=== PATIENT | female | born 1980 | race Asian ===

== ENCOUNTER 2016-04-26 16:01 | Emergency (ER) | payer OTHER ==
[~2016-04-26] VITALS: Ht 154.9 cm; Wt 80.7 kg
[2016-04-26 17:05] VITALS: BP 110/78; TEMP 98.5
== END 2016-04-26 17:06 | disposition home or self-care (01) ==
LOC: ED 16:01
PROC: 09C1XZZ Extirpation of Matter from Left External Ear, External Approach (ICD-10-PCS; principal; 2016-04-26)
DX: T16.2XXA Foreign body in left ear, initial encounter (principal)
CPT/HCPCS: 99283

== ENCOUNTER 2018-11-16 10:05 | Emergency (ER) | payer OTHER ==
[~2018-11-16] VITALS: Ht 165.1 cm; Wt 96.6 kg
[2018-11-16 10:09] VITALS: BP 124/86; TEMP 97.7
[2018-11-16 10:31] LABS: PLATELET COUNT 375 K/uL (152-353)
[2018-11-16 10:36] LABS: POTASSIUM 3.5 mmol/L (3.6-5.2); SODIUM 138 mmol/L (136-145)
== END 2018-11-16 11:50 | disposition home or self-care (01) ==
LOC: ED 10:05
PROVIDERS: Emergency Medicine
DX: J40 Bronchitis, not specified as acute or chronic (principal); J06.9 Acute upper respiratory infection, unspecified
CPT/HCPCS: 80053; 82550; 82553; 84484; 85027; 87502; 87651; 94664; 96372; 99283; J2930

== ENCOUNTER 2019-03-30 08:08 | Emergency (ER) | payer OTHER ==
[~2019-03-30] VITALS: Ht 162.6 cm; Wt 98.9 kg
[2019-03-30 08:14] VITALS: TEMP 97.2
[2019-03-30 08:54] LABS: PLATELET COUNT 365 K/uL (152-353)
[2019-03-30 09:27] VITALS: BP 128/91
== END 2019-03-30 09:46 | disposition home or self-care (01) ==
LOC: ED 08:08
PROVIDERS: Hospitalist
DX: M54.5 Low back pain (principal); G89.29 Other chronic pain
CPT/HCPCS: 80048; 81000; 81025; 85027; 87088; 96372; 99283; J0696; J1885; J2405

== ENCOUNTER 2020-09-24 08:11 | Emergency (ER) | payer OTHER | END 2020-09-24 09:38 | disposition home or self-care (01) | LOC: ED 08:11 | DX: L50.8 Other urticaria (principal); L03.116 Cellulitis of left lower limb; T63.421A Toxic effect of venom of ants, accidental (unintentional), initial encounter; Y92.89 Other specified places as the place of occurrence of the external cause | CPT/HCPCS: 96372; 99283; J2930 ==

== ENCOUNTER 2021-04-18 08:08 | Emergency (ER) | payer OTHER ==
[~2021-04-18] VITALS: Ht 165.1 cm; Wt 110.2 kg
[2021-04-18 08:14] VITALS: BP 136/96; TEMP 97
== END 2021-04-18 09:31 | disposition home or self-care (01) ==
LOC: ED 08:08
DX: J02.0 Streptococcal pharyngitis (principal)
CPT/HCPCS: 87502; 87651; 96372; 99283; J0696

== ENCOUNTER 2021-11-10 10:26 | Emergency (ER) | payer OTHER ==
[~2021-11-10] VITALS: Ht 165.1 cm; Wt 108.4 kg
[2021-11-10 10:30] VITALS: BP 144/93; TEMP 97.1
== END 2021-11-10 12:00 | disposition home or self-care (01) ==
LOC: ED 10:26
DX: Z32.02 Encounter for pregnancy test, result negative (principal)
CPT/HCPCS: 81002; 81025; 99283